=== PATIENT | female | born 1985 | race Caucasian/White ===

== ENCOUNTER → 2021-05-13 | Outpatient (CLI) | payer BC ==
[~2021-05-13] MED LIST: ASPIRIN CHEWABL81 MG PO; INDOCIN 50 MG C50 MG PO; LEXAPRO10 MG PO; SPRINTEC 28 DA1 EACH PO; VITAMIN D OTC PO
== END ==
LOC: EXRD 13:18
DX: M46.1 Sacroiliitis, not elsewhere classified (principal)
CPT/HCPCS: 72202